=== PATIENT | male | born 1945 | race Caucasian/White ===

== ENCOUNTER 2025-09-18 09:39 | Outpatient (REF) | payer MEDICARE, BC, SELFPAY ==
--- OUTSIDE RECORDS SUMMARY | 2025-09-18 10:07 | XMS_ITS | Clinical Summary ---
Author Organization [facility] Address [address] 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 Name Role Phone Nimesh Chen MD Primary Care Provide r Social History Tobacco UseTypesPacks/DayYears UsedDateSmoking Tobacco: Never AssessedSex and Gender InformationValueDate RecordedSex Assigned at BirthNot on fileLegal Sex Male09/07/2022 10:09 AM ESTGender IdentityNot on fileSexual OrientationNot on file Plan of Treatment Not on file Advance Directives For more information, please contact: [phone] (Available ) TypeDate RecordedPatient RepresentativeExplanationAdvance Directives and Living Will01/27/2010 Care Teams Team MemberRelationshipSpecialtyStart DateEnd Date Nimesh Chen MD [facility] - General07/11/10
--- OUTSIDE RECORDS SUMMARY | 2025-09-18 10:07 | XMS_ITS | Clinical Summary ---
Author Organization [facility] Address 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
[2025-09-18 11:08] LABS: Hemoglobin 7.6 g/dL (14.0-18.0); Mean Corpuscular HGB Conc 31.9 g/dL (29.9-35.2); Mean Corpuscular Hemoglobin 28.9 pg (25.9-34.0); Mean Corpuscular Volume 90.5 fL (80.0-94.0); Platelet Count 234 10^3/uL (150-450); Red Blood Count 2.63 10^6/uL (4.70-6.10); White Blood Count 18.4 10^3/uL (4.0-11.0)
[2025-09-18 11:16] LABS: Hematocrit 23.8 % (42.0-54.0)
== END 2025-09-18 09:40 | disposition home or self-care (01) ==
LOC: LAB 09:39
PROVIDERS: PCP Internal Medicine; Visit Provider Internal Medicine
DX: D64.9 Anemia, unspecified (principal)
CPT/HCPCS: 36415; 84132; 85027